=== PATIENT | male | born 1985 | race Two or more races ===

== ENCOUNTER 2025-05-16 09:31 | Emergency (ER) | payer OTHER ==
[~2025-05-16] VITALS: Ht 185.4 cm; Wt 104.3 kg
[2025-05-16 09:53] LABS: PLATELET COUNT (AUTO) 403 K/uL (150-450); RED BLOOD CELL COUNT(AUTO) 4.47 MIL/uL (4.5-6.0); RED CELL DISTRIBUTION WIDTH 13.1 % (11.5-15.0); WHITE BLOOD COUNT (AUTO) 8.3 K/uL (4.3-11.0)
[2025-05-16 10:32] LABS: APPEARANCE,URINE CLEAR (CLEAR); BLOOD, URINE TRACE-INTA Ery/uL (NEGATIVE); LEUKOCYTE ESTERASE ,URINE NEGATIVE (NEGATIVE); NITRITE, URINE NEGATIVE (NEGATIVE); UGLUCOSE NEGATIVE (NEGATIVE)
[2025-05-16 10:39] LABS: ADD URINE CULTURE NO; SQUAMOUS EPITHELIAL CELL,UR None Seen /HPF (None Seen)
[2025-05-16 10:49] LABS: CALCIUM, SERUM 8.2 mg/dL (8.5-10.1); CREATININE 1.1 mg/dL (0.6-1.3); SODIUM SERUM 142.0 mmol/L (136-145); TOTAL PROTEIN, SERUM 8.0 g/dL (6.4-8.2); UREA NITROGEN, BLOOD 19.0 mg/dL (7-18)
[2025-05-16 11:04] LABS: ASPARTATE AMINOTRANSFERASE 51.0 U/L (15-37)
[2025-05-16] MEDS: FAMOTIDINE/PF INJ 20 MG/2 ML VIAL IV ONE (11:15)
[2025-05-16] MEDS: IV NS 0.9% 1,000 ML BAG IV ONE (11:15)
[2025-05-16] MEDS: ONDANSETRON HCL/PF 4 MG/2 ML VIAL IVP ONE (11:15)
[2025-05-16] MEDS ORDERED: ONDA4TAB5 PO (11:18)
[2025-05-16] MEDS ORDERED: PANT20TA2 PO (11:18)
[2025-05-16] MEDS ORDERED: LIDOCAINE VISCOUS 2% UD 15 ML UDC ONE (11:20)
[2025-05-16] MEDS ORDERED: ONDANSETRON HCL/PF 4 MG/2 ML VIAL ONE (11:20)
[2025-05-16] MEDS ORDERED: MAG HYDROX/AL HYDROX/SIMETH 30 ML UDC ONE (11:20)
[2025-05-16] MEDS ORDERED: FAMOTIDINE/PF INJ 20 MG/2 ML VIAL IV ONE (11:21)
[2025-05-16] MEDS: LIDOCAINE VISCOUS 2% UD 15 ML UDC MM ONE (11:31)
[2025-05-16] MEDS: MAG HYDROX/AL HYDROX/SIMETH 30 ML UDC PO ONE (11:32)
[2025-05-16 12:30] VITALS: BP 128/83; TEMP 98.7; O2SAT 99
== END 2025-05-16 12:31 | disposition home or self-care (01) ==
LOC: ER 09:35
DX: R10.10 Upper abdominal pain, unspecified (principal); R11.0 Nausea; K76.89 Other specified diseases of liver; K80.20 Calculus of gallbladder without cholecystitis without obstruction; I10 Essential (primary) hypertension; Z79.899 Other long term (current) drug therapy; Z88.1 Allergy status to other antibiotic agents
CPT/HCPCS: 99285; 96374; 76705; 96361; 96375; 93005; 85025; 80048; 83690; 80076; 81001; 36415; J1308; J2405; J7030